=== PATIENT | female | born 1980 | race American Indian/Alaskan Native ===

== ENCOUNTER 2019-10-28 20:42 | Emergency (ER) | payer SELFPAY ==
[2019-10-28 22:24] LABS: Basophils % (Auto) 0.7 % (0.0-1.8); Eosinophils # (Auto) 0.1 K/mm3 (0.0-0.4); Eosinophils % (Auto) 2.3 % (0.0-4.3); Hematocrit 31.6 % (30.3-42.9); Hemoglobin 9.9 gm/dl (10.1-14.3); Lymphocytes # (Auto) 2.5 K/mm3 (1.2-5.4); Lymphocytes % (Auto) 40.9 % (13.4-35.0); Mean Corpuscular HGB Conc 31 % (30-34); Mean Corpuscular Volume 74 fl (79-97); Monocytes # (Auto) 0.4 K/mm3 (0.0-0.8); Monocytes % (Auto) 6.3 % (0.0-7.3); Platelet Count 377 K/mm3 (140-440); Red Blood Count 4.24 M/mm3 (3.65-5.03); Red Cell Distribution Width 17.5 % (13.2-15.2)
[2019-10-28 22:29] LABS: Alanine Aminotransferase 12 units/L (7-56); Albumin 3.8 g/dL (3.9-5); Blood Urea Nitrogen 7 mg/dL (7-17); Calcium 9.1 mg/dL (8.4-10.2); Hemolysis Index 2
[2019-10-28 22:32] LABS: BUN/Creatinine Ratio 10
[2019-10-28] MEDS ORDERED: ONDANSETRON 4 MG/2 ML INJ IV STA (23:47)
[2019-10-28] MEDS ORDERED: POTASSIUM CHLORIDE ER 20 MEQ TAB PO ONE (23:47)
[2019-10-28] MEDS ORDERED: HYOSCYAMINE SUBL 0.125 MG TAB SL ONE (23:47)
[2019-10-28] MEDS ORDERED: SODIUM CHLORIDE 0.9% 1000 ML 1,000 ML IV ONE (23:48)
--- NOTE | 2019-10-28 23:54 | Emergency Department Report ---
ED Abdominal Pain HPI - General Chief Complaint: Abdominal Pain Stated Complaint: CROHNS FLARE UP Time Seen by Provider: 10/28/19 23:42 Source: patient Mode of arrival: Ambulatory Limitations: No Limitations - History of Present Illness Initial Comments: 39-year-old F [place]an female with a past medical history of Crohn's disease on Remicade under the care of [facility] who has been out of her medications for the last 4 to 5 days presents emergency department complaining of a 3 to 4-day history of emergent abdominal pain and cramping sensations associated with nausea and sure she is having a Crohn's flareup. She reports having some scant blood in her stool about 3 days ago but none since that time. There is some nausea but no vomiting. Reports no fever, chills, sweats no chest pain or palpitations MD Complaint: abdominal pain - Related Data Previous Rx's Medication Instructions Recorded Last Taken Type Hyoscyamine Subl [Levsin Sl 0.125 0.125 mg SL Q6HR PRN #20 tab 10/29/19 Unknown Rx TAB] Ondansetron [Zofran ODT TAB] 8 mg PO Q12HR #14 tab.rapdis 10/29/19 Unknown Rx Allergies Allergy/AdvReac Type Severity Reaction Status Date / Time ibuprofen Allergy Anaphylaxis Verified 10/28/19 21:35 kiwi Allergy Anaphylaxis Verified 10/28/19 21:36 pineapple Allergy Anaphylaxis Verified 10/28/19 21:36 shellfish derived Allergy Anaphylaxis Verified 10/28/19 21:37 strawberry Allergy Anaphylaxis Verified 10/28/19 21:36 tomato Allergy Anaphylaxis Verified 10/28/19 21:37 ED Review of Systems ROS: Stated complaint: CROHNS FLARE UP Other details as noted in HPI Comment: All other systems reviewed and negative ED Past Medical Hx - Past Medical History Previous Medical History?: Yes Hx Hypertension: Yes Additional medical history: Crohns Disease, Diverticulitis - Surgical History Past Surgical History?: Yes Additional Surgical History: Bwel Resction, , Left Knee surgery - Social History Smoking Status: Current Every Day Smoker - Medications Home Medications: Home Medications Medication Instructions Recorded Confirmed Last Taken Type Hyoscyamine Subl [Levsin Sl 0.125 0.125 mg SL Q6HR PRN #20 tab 10/29/19 Unknown Rx TAB] Ondansetron [Zofran ODT TAB] 8 mg PO Q12HR #14 tab.rapdis 10/29/19 Unknown Rx ED Physical Exam - General Limitations: No Limitations General appearance: alert, in no apparent distress - Head Head exam: Present: atraumatic, normocephalic - Eye Eye exam: Present: normal appearance, PERRL, EOMI Pupils: Present: normal accommodation - ENT ENT exam: Present: normal exam, normal orophraynx, mucous membranes moist, TM's normal bilaterally - Neck Neck exam: Present: normal inspection - Respiratory Respiratory exam: Present: normal lung sounds bilaterally. Absent: respiratory distress, wheezes, rales, chest wall tenderness, accessory muscle use - Cardiovascular Cardiovascular Exam: Present: regular rate, normal rhythm. Absent: systolic murmur, diastolic murmur, rubs, gallop - GI/Abdominal GI/Abdominal exam: Present: soft, tenderness, normal bowel sounds. Absent: guarding, rebound, organomegaly, mass, bruit, hernia - Extremities Exam Extremities exam: Present: normal inspection - Back Exam Back exam: Present: normal inspection - Neurological Exam Neurological exam: Present: alert, oriented X3, CN II-XII intact - Psychiatric Psychiatric exam: Present: normal affect, normal mood - Skin Skin exam: Present: warm, dry, intact, normal color. Absent: rash ED Course Vital Signs 10/28/19 21:29 Temperature 98.0 F Pulse Rate 84 Respiratory 14 Rate Blood Pressure 180/125 O2 Sat by Pulse 97 Oximetry ED Medical Decision Making - Lab Data Result diagrams: 10/28/19 21:50 10/28/19 21:50 - Radiology Data Radiology results: report reviewed [address] [address] Cat Scan Report Signed Patient: AURELIA CASEY MR#: [id number] : 1980 Acct:[id number] Age/Sex: 39 / F ADM Date: 10/28/19 Loc: ED Attending Dr: Ordering Physician: AKUA JOHNSON Date of Service: 10/28/19 Procedure(s): CT abdomen pelvis w con Accession Number(s): [id number] cc: AKUA JOHNSON CT ABDOMEN AND PELVIS WITH IV CONTRAST INDICATION: Right lower quadrant abdominal pain, nausea and vomiting. History of Crohn's disease. TECHNIQUE: Following the administration of intravenous contrast, multiple axial CT images of the abdomen and pelvis were acquired. Sagittal and coronal reformats were obtained. All CT performed at this facility utilize dose reduction techniques including automated exposure control, iterative reconstruction and weight based dosing when appropriate to reduce patient radiation dose to as low as reasonably achievable. COMPARISON: No prior studies are available for comparison. FINDINGS: Limited imaging of the bilateral lung bases demonstrates no evidence of acute abnormality. Abdomen: The liver, gallbladder, spleen, pancreas, bilateral adrenal glands and bilateral kidneys show no evidence of acute abnormality. The abdominal aorta is normal in caliber. There is no evidence of bowel obstruction, pneumatosis or free fluid. Postsurgical changes are noted within the mid right abdomen. The appendix is visualized and appears normal. Pelvis: No free fluid is seen within the pelvis. There is been previous tubal banding procedure. The urinary bladder appears normal. Bones and Soft Tissues: Evaluation of bony structures demonstrates no evidence of acute bony abnormality. Evaluation of soft tissue structures demonstrates no evidence of acute soft tissue abnormality. Several fat-containing ventral hernias are noted. IMPRESSION: 1. No CT evidence of acute inflammatory or obstructive process within the abdomen or pelvis. Signer Name: Autumn Puentes MD Signed: 10/29/2019 1:40 AM Workstation Name: [id number] Transcribed By: EB Dictated By: Autumn Puentes MD Electronically Authenticated By: Autumn Puentes MD Signed Date/Time: 10/29/19139 DD/ 3 TD/TT: - Medical Decision Making This patient presents with abdominal pain of unclear etiology. A CT scan was performed to evaluate for potential causes of the abdominal pain, however, neither the clinical exam nor the CT has identified an emergent etiology for the abdominal pain. Specifically, given the benign exam, the laboratory studies, and unremarkable CT, I have a very low suspicion for appendicitis, ischemic bowel, bowel perforation, or any other life threatening disease. I have discussed with the patient the level of uncertainty with undifferentiated abdominal pain and clearly explained the need to follow-up as noted on the discharge instructions, or return to the Emergency Department immediately if the pain worsens, develops fever, persistent and uncontrollable vomiting, or for any new symptoms or concerns. Critical care attestation.: If time is entered above; I have spent that time in minutes in the direct care of this critically ill patient, excluding procedure time. ED Disposition Clinical Impression: Diarrhea, Abdominal pain Disposition: DC-01 TO HOME OR SELFCARE Is pt being admited?: No Does the pt Need Aspirin: No Condition: Stable Instructions: Abdominal Pain (ED), Loperamide (By mouth), Acute Diarrhea (ED), Acute Nausea and Vomiting (ED) Referrals: PRIMARY CARE, [Primary Care Provider] - 3-5 Days [facility] [Provider Group] - 3-5 Days
--- NOTE | 2019-10-29 01:44 | Cat Scan Report ---
CT ABDOMEN AND PELVIS WITH IV CONTRAST INDICATION: Right lower quadrant abdominal pain, nausea and vomiting. History of Crohn's disease. TECHNIQUE: Following the administration of intravenous contrast, multiple axial CT images of the abdo men and pelvis were acquired. Sagittal and coronal reformats were obtained. All CT performed at this facility utilize dose reduction techniques including automated exposure control, iterative reconstru ction and weight based dosing when appropriate to reduce patient radiation dose to as low as reasonab ly achievable. COMPARISON: No prior studies are available for comparison. FINDINGS: Limited imaging of the bilateral lung bases demonstrates no evidence of acute abnormality. Abdomen: The liver, gallbladder, spleen, pancreas, bilateral adrenal glands and bilateral kidneys nabil w no evidence of acute abnormality. The abdominal aorta is normal in caliber. There is no evidence of bowel obstruction, pneumatosis or free fluid. Postsurgical changes are noted within the mid right ab domen. The appendix is visualized and appears normal. Pelvis: No free fluid is seen within the pelvis. There is been previous tubal banding procedure. The urinary bladder appears normal. Bones and Soft Tissues: Evaluation of bony structures demonstrates no evidence of acute bony abnormal ity. Evaluation of soft tissue structures demonstrates no evidence of acute soft tissue abnormality. Several fat-containing ventral hernias are noted. IMPRESSION: 1. No CT evidence of acute inflammatory or obstructive process within the abdomen or pelvis. Signer Name: Autumn Puentes MD Signed: 10/29/2019 1:40 AM Workstation Name: [employer] [place] [id number]
[2019-10-29 02:48] VITALS: BP 184/121
== END 2019-10-29 02:44 | disposition home or self-care (01) ==
LOC: ED 20:42
DX: R19.7 Diarrhea, unspecified (principal); R10.9 Unspecified abdominal pain; I10 Essential (primary) hypertension; F17.200 Nicotine dependence, unspecified, uncomplicated; Z79.899 Other long term (current) drug therapy; Z88.6 Allergy status to analgesic agent; Z91.018 Allergy to other foods; Z98.890 Other specified postprocedural states
CPT/HCPCS: 36415; 74177; 80053; 83690; 84703; 85025; 96361; 96374; 99284; J2405; J7030; Q9967

== ENCOUNTER 2021-04-04 14:30 | Emergency (ER) | payer SELFPAY ==
[2021-04-04] MEDS ORDERED: HYDROcodone/ACETAMINOPHEN 5-325 MG TAB PO ONE (15:29)
[2021-04-04] MEDS ORDERED: cloNIDine 0.1 MG TAB PO ONE (15:29)
[2021-04-04 15:54] LABS: Basophils # (Auto) 0.1 K/mm3 (0.0-0.1); Basophils % (Auto) 1.2 % (0.0-1.8); Eosinophils # (Auto) 0.1 K/mm3 (0.0-0.4); Eosinophils % (Auto) 2.9 % (0.0-4.3); Lymphocytes # (Auto) 1.2 K/mm3 (1.2-5.4); Lymphocytes % (Auto) 28.2 % (13.4-35.0); Mean Corpuscular HGB Conc 30 % (30-34); Monocytes # (Auto) 0.5 K/mm3 (0.0-0.8); Monocytes % (Auto) 12.3 % (0.0-7.3); Platelet Count 355 K/mm3 (140-440); Red Blood Count 3.98 M/mm3 (3.65-5.03); Red Cell Distribution Width 17.6 % (13.2-15.2)
[2021-04-04 15:57] LABS: Hemoglobin 7.8 gm/dl (10.1-14.3)
[2021-04-04 15:58] LABS: Hematocrit 26.5 % (30.3-42.9); Mean Corpuscular Volume 67 fl (79-97)
[2021-04-04 16:20] LABS: Alanine Aminotransferase 10 units/L (7-56); Albumin 3.4 g/dL (3.9-5); BUN/Creatinine Ratio 19; Blood Urea Nitrogen 15 mg/dL (7-17); Calcium 8.3 mg/dL (8.4-10.2); Hemolysis Index 4
[2021-04-04] MEDS ORDERED: POTASSIUM CHLORIDE ER 20 MEQ TAB PO ONE (16:27)
--- NOTE | 2021-04-04 16:40 | XRay Report ---
CHEST 2 VIEWS INDICATION / CLINICAL INFORMATION: Chest Pain STUDY TIME: 1623 COMPARISON: None available. FINDINGS: SUPPORT DEVICES: None. HEART / MEDIASTINUM: No significant abnormality. LUNGS / PLEURA: No significant acute pulmonary or pleural abnormality. No pneumothorax. ADDITIONAL FINDINGS: No significant additional findings. Signer Name: Chaz Castro MD Signed: 04/04/2021 4:36 PM Workstation Name: [id number]
--- NOTE | 2021-04-04 16:46 | Emergency Department Report ---
ED General Adult HPI - General Chief complaint: Headache Stated complaint: CHEST PAIN Time Seen by Provider: 04/04/21 15:28 Source: patient Mode of arrival: Ambulatory Limitations: No Limitations - History of Present Illness Initial comments: Patient is a 41-year-old female who presents emergency room with complaints of a frontal headache that began this morning when she woke up. She states that she is also having a pulling sensation across her chest. She denies any fever, nausea, vomiting, diarrhea, shortness of breath, numbness, unilateral weakness, speech disturbance, vision changes, pleuritic pain. Past medical history of hypertension and Crohn's disease. She states that she did not take her blood pressure medication today. She states that she is also out of her hydrochlorothiazide 12.5 mg daily. Patient states that she has an allergy to i buprofen which she reports causes anaphylaxis and she has to use an EpiPen. Severity scale (0 -10): 10 - Related Data Previous Rx's Medication Instructions Recorded Last Taken Type Hyoscyamine Subl [Levsin Sl 0.125 0.125 mg SL Q6HR PRN #20 tab 10/29/19 Unknown Rx TAB] Ondansetron [Zofran ODT TAB] 8 mg PO Q12HR #14 tab.rapdis 10/29/19 Unknown Rx Butalb/Acetaminophen/Caffeine 1 cap PO Q8HR PRN #12 cap 04/04/21 Unknown Rx [Fioricet 50-300-40 mg CAP] hydroCHLOROthiazide 12.5 mg PO DAILY #30 tab 04/04/21 Unknown Rx [Hydrochlorothiazide] Allergies Allergy/AdvReac Type Severity Reaction Status Date / Time ibuprofen Allergy Anaphylaxis Verified 10/28/19 21:35 kiwi Allergy Anaphylaxis Verified 10/28/19 21:36 pineapple Allergy Anaphylaxis Verified 10/28/19 21:36 shellfish derived Allergy Anaphylaxis Verified 10/28/19 21:37 strawberry Allergy Anaphylaxis Verified 10/28/19 21:36 tomato Allergy Anaphylaxis Verified 10/28/19 21:37 ED Review of Systems ROS: Stated complaint: CHEST PAIN Other details as noted in HPI Comment: All other systems reviewed and negative ED Past Medical Hx - Past Medical History Previous Medical History?: Yes Hx Hypertension: Yes Additional medical history: Crohns Disease, Diverticulitis - Surgical History Past Surgical History?: Yes Additional Surgical History: Bowel Resction, , Left Knee surgery - Social History Smoking Status: Current Every Day Smoker - Medications Home Medications: Home Medications Medication Instructions Recorded Confirmed Last Taken Type Hyoscyamine Subl [Levsin Sl 0.125 0.125 mg SL Q6HR PRN #20 tab 10/29/19 Unknown Rx TAB] Ondansetron [Zofran ODT TAB] 8 mg PO Q12HR #14 tab.rapdis 10/29/19 Unknown Rx Butalb/Acetaminophen/Caffeine 1 cap PO Q8HR PRN #12 cap 04/04/21 Unknown Rx [Fioricet 50-300-40 mg CAP] hydroCHLOROthiazide 12.5 mg PO DAILY #30 tab 04/04/21 Unknown Rx [Hydrochlorothiazide] ED Physical Exam - General Limitations: No Limitations General appearance: alert, in no apparent distress - Head Head exam: Present: atraumatic, normocephalic - Eye Eye exam: Present: normal appearance, PERRL, EOMI - ENT ENT exam: Present: mucous membranes moist - Respiratory Respiratory exam: Present: normal lung sounds bilaterally. Absent: respiratory distress, wheezes, rales, rhonchi, stridor, chest wall tenderness, accessory muscle use, decreased breath sounds, prolonged expiratory - Cardiovascular Cardiovascular Exam: Present: regular rate, normal rhythm, normal heart sounds. Absent: systolic murmur, diastolic murmur, rubs, gallop - Neurological Exam Neurological exam: Present: alert, oriented X3, CN II-XII intact, normal gait, other (I watched pt walk from exam room to reassesment area with her bag with no difficulty). Absent: motor sensory deficit - Psychiatric Psychiatric exam: Present: normal affect, normal mood - Skin Skin exam: Present: warm, dry, intact ED Course Vital Signs 04/04/21 04/04/21 15:10 17:48 Temperature 98.4 F Pulse Rate 80 68 Respiratory 20 Rate Blood Pressure 138/90 Blood Pressure 183/117 [Right] O2 Sat by Pulse 100 100 Oximetry ED Medical Decision Making - Lab Data Result diagrams: 04/04/21 15:40 04/04/21 15:40 Lab Results 04/04/21 04/04/21 04/04/21 Range/Units 15:40 15:40 15:40 WBC 4.3 L (4.5-11.0) K/mm3 RBC 3.98 (3.65-5.03) M/mm3 Hgb 7.8 L (10.1-14.3) gm/dl Hct 26.5 L (30.3-42.9) % MCV 67 L (79-97) fl MCH 20 L (28-32) pg MCHC 30 (30-34) % RDW 17.6 H (13.2-15.2) % Plt Count 355 (140-440) K/mm3 Lymph % (Auto) 28.2 (13.4-35.0) % Burnett % (Auto) 12.3 H (0.0-7.3) % Eos % (Auto) 2.9 (0.0-4.3) % Baso % (Auto) 1.2 (0.0-1.8) % Lymph # (Auto) 1.2 (1.2-5.4) K/mm3 Burnett # (Auto) 0.5 (0.0-0.8) K/mm3 Eos # (Auto) 0.1 (0.0-0.4) K/mm3 Baso # (Auto) 0.1 (0.0-0.1) K/mm3 Seg Neutrophils % 55.4 (40.0-70.0) % Seg Neutrophils # 2.4 (1.8-7.7) K/mm3 Sodium 141 (137-145) mmol/L Potassium 3.2 L (3.6-5.0) mmol/L Chloride 106.0 (98-107) mmol/L Carbon Dioxide 25 (22-30) mmol/L Anion Gap 13 mmol/L BUN 15 (7-17) mg/dL Creatinine 0.8 (0.6-1.2) mg/dL Estimated GFR > 60 ml/min BUN/Creatinine Ratio 19 % Glucose 85 (65-100) mg/dL Calcium 8.3 L (8.4-10.2) mg/dL Total Bilirubin 0.30 (0.1-1.2) mg/dL AST 15 (5-40) units/L ALT 10 (7-56) units/L Alkaline Phosphatase 79 (35-129) units/L Troponin T < 0.010 (0.00-0.029) ng/mL Total Protein 6.5 (6.3-8.2) g/dL Albumin 3.4 L (3.9-5) g/dL Albumin/Globulin Ratio 1.1 % HCG, Qual Negative (Negative) 04/04/21 Range/Units 18:27 WBC (4.5-11.0) K/mm3 RBC (3.65-5.03) M/mm3 Hgb (10.1-14.3) gm/dl Hct (30.3-42.9) % MCV (79-97) fl MCH (28-32) pg MCHC (30-34) % RDW (13.2-15.2) % Plt Count (140-440) K/mm3 Lymph % (Auto) (13.4-35.0) % Burnett % (Auto) (0.0-7.3) % Eos % (Auto) (0.0-4.3) % Baso % (Auto) (0.0-1.8) % Lymph # (Auto) (1.2-5.4) K/mm3 Burnett # (Auto) (0.0-0.8) K/mm3 Eos # (Auto) (0.0-0.4) K/mm3 Baso # (Auto) (0.0-0.1) K/mm3 Seg Neutrophils % (40.0-70.0) % Seg Neutrophils # (1.8-7.7) K/mm3 Sodium (137-145) mmol/L Potassium (3.6-5.0) mmol/L Chloride (98-107) mmol/L Carbon Dioxide (22-30) mmol/L Anion Gap mmol/L BUN (7-17) mg/dL Creatinine (0.6-1.2) mg/dL Estimated GFR ml/min BUN/Creatinine Ratio % Glucose (65-100) mg/dL Calcium (8.4-10.2) mg/dL Total Bilirubin (0.1-1.2) mg/dL AST (5-40) units/L ALT (7-56) units/L Alkaline Phosphatase (35-129) units/L Troponin T < 0.010 (0.00-0.029) ng/mL Total Protein (6.3-8.2) g/dL Albumin (3.9-5) g/dL Albumin/Globulin Ratio % HCG, Qual (Negative) Vital Signs (72 hours) 04/04/21 04/04/21 15:10 17:48 Temperature 98.4 F Pulse Rate 80 68 Respiratory 20 Rate Blood Pressure 138/90 Blood Pressure 183/117 [Right] O2 Sat by Pulse 100 100 Oximetry - EKG Data EKG shows normal: sinus rhythm, axis, intervals, QRS complexes, ST-T waves Rate: normal - Radiology Data Radiology results: report reviewed Ordering Physician: AKUA PETTIT Date of Service: 04/04/21 Procedure(s): CT head/brain wo con Accession Number(s): [id number] cc: AKUA PETTIT CT head/brain wo con INDICATION / CLINICAL INFORMATION: 41 years Female; AGUILAR, hypertensive. TECHNIQUE: Routine CT head without contrast. All CT scans at this location are performed using CT dose reduction for ALARA by means of automated exposure control. COMPARISON: None. FINDINGS: BRAIN / INTRACRANIAL CONTENTS: No acute hemorrhage, mass effect, midline shift, hydrocephalus, or acute, large territorial infarct. No signs of significant atrophy or chronic infarct. No significant white matter abnormality seen. CRANIOCERVICAL JUNCTION: No significant abnormality. ORBITS: No significant abnormality of visualized orbits. SINUSES / MASTOIDS: Visualized paranasal sinuses and mastoid air cells are essentially clear. ADDITIONAL FINDINGS: None. IMPRESSION: 1. No focal mass, hemorrhage, hydrocephalus, or acute, large territorial infarct. Signer Name: Raymundo Kimball MD, III Signed: 04/04/2021 4:50 PM Workstation Name: [email or web address] [id number] Transcribed By: HR Dictated By: Raymundo Kimball MD Electronically Authenticated By: Raymundo Kimball MD Signed Date/Time: 04/04/21 165 DD/ 1649 TD/TT: Ordering Physician: AKUA PETTIT Date of Service: 04/04/21 Procedure(s): XR chest routine 2V Accession Number(s): [id number] cc: AKUA PETTIT Fluoro Time In Minutes: CHEST 2 VIEWS INDICATION / CLINICAL INFORMATION: Chest Pain STUDY TIME: 1623 COMPARISON: None available. FINDINGS: SUPPORT DEVICES: None. HEART / MEDIASTINUM: No significant abnormality. LUNGS / PLEURA: No significant acute pulmonary or pleural abnormality. No pneumothorax. ADDITIONAL FINDINGS: No significant additional findings. Signer Name: Chaz Castro MD Signed: 04/04/2021 4:36 PM Workstation Name: [id number] Transcribed By: NAZ Dictated By: Chaz Castro MD Electronically Authenticated By: Chaz Castro MD Signed Date/Time: 04/04/211635 DD/ 34 TD/TT: - Medical Decision Making Patient is a 41-year-old female who presents emergency room with complaints of a frontal headache that began this morning when she woke up. She states that she is also having a pulling sensation across her chest. She denies any fever, nausea, vomiting, diarrhea, shortness of breath, numbness, unilateral weakness, speech disturbance, vision changes, pleuritic pain. Past medical history of hypertension and Crohn's disease. She states that she did not take her blood pressure medication today. She states that she is also out of her hydrochlorothiazide 12.5 mg daily. Patient states that she has an allergy to ibuprofen which she reports causes anaphylaxis and she has to use an EpiPen. Initial vitals with significantly elevated blood pressure which improved upon clonidine administration. Given the patient is hypertensive with acute frontal headache, CT head ordered and shows 1. No focal mass, hemorrhage, hyd rocephalus, or acute, large territorial infarct. She has no focal neuro deficits on exam, no fever, no leukocytosis, no meningeal signs, no trauma, no anticoagulant use. Chest x-ray ADDITIONAL FINDINGS: No significant additional findings. EKG is a normal limits. Heart score is 2, low risk for cardiac event. H&H was stable anemia, she is not having any bleeding, upon chart review she has had some mild anemia in the past but has slightly worsened, will have patient follow-up with her primary care doctor. Mild hypokalemia 3.2, given K- Dur. Troponin is negative x2. PERC criteria negative for PE, PE unlikely. Patient given medications in the emergency department with resolution of her s ymptoms. Patient has no radiation of her chest pain to her back, no ripping sensation, blood pressure significantly improved, no enlargement of the mediastinum on x-ray, do not suspect aortic dissection. Discussed all findings with patient and the importance of primary care and outpatient cardiology follow-up. Advised patient Please take medication as prescribed. Please take your blood pressure medication as prescribed by your primary care doctor. Follow-up with your primary care doctor. Keep a blood pressure log. Eat a low- sodium diet. Incorporate 30 to 60 minutes of daily exercise. Follow-up with a [facility]. Return to emergency room for any new or worsening symptoms. Critical care attestation.: If time is entered above; I have spent that time in minutes in the direct care of this critically ill patient, excluding procedure time. ED Disposition Clinical Impression: Elevated blood pressure reading, Hypokalemia Chest pain Qualifiers: Chest pain type: unspecified Qualified Code(s): R07.9 - Chest pain, unspecified Headache Qualifiers: Headache type: unspecified Headache chronicity pattern: acute headache Intractability: not intractable Qualified Code(s): R51.9 - Headache, unspecified Anemia Qualifiers: Anemia type: unspecified type Qualified Code(s): D64.9 - Anemia, unspecified Disposition: 01 HOME / SELF CARE / HOMELESS Is pt being admited?: No Does the pt Need Aspirin: No Condition: Stable Instructions: General Headache Without Cause, Nonspecific Chest Pain, Adult, Hypertension, Adult Additional Instructions: Please take medication as prescribed. Please take your blood pressure medication as prescribed by your primary care doctor. Follow-up with your [facility] doctor. Keep a blood pressure log. Eat a low-sodium diet. Incorporate 30 to 60 minutes of daily exercise. Follow-up with a [facility]. Return to emergency room for any new or worsening symptoms. Prescriptions: Butalb/Acetaminophen/Caffeine [Fioricet 50-300-40 mg CAP] 1 cap PO Q8HR PRN #12 cap PRN Reason: headache hydroCHLOROthiazide [Hydrochlorothiazide] 12.5 mg PO DAILY #30 tab Referrals: PRIMARY CAREMD [Primary Care Provider] - 3-5 Days SPENCER DUNAWAY MD [Staff Physician] - 3-5 Days Time of Disposition: 19:39 HEART Score - HEART Score History: Moderately suspicious EKG: Normal Age: < 45 Risk factors: 1-2 risk factors Troponin: Troponin T < 0.010 ng/mL (0.00-0.029) 04/04/21 18:27 Troponin: < normal limit HEART Score: 2
--- NOTE | 2021-04-04 16:55 | Cat Scan Report ---
CT head/brain wo con INDICATION / CLINICAL INFORMATION: 41 years Female; AGUILAR, hypertensive. TECHNIQUE: Routine CT head without contrast. All CT scans at this location are performed using CT dos e reduction for ALARA by means of automated exposure control. COMPARISON: None. FINDINGS: BRAIN / INTRACRANIAL CONTENTS: No acute hemorrhage, mass effect, midline shift, hydrocephalus, or acu te, large territorial infarct. No signs of significant atrophy or chronic infarct. No significant whi te matter abnormality seen. CRANIOCERVICAL JUNCTION: No significant abnormality. ORBITS: No significant abnormality of visualized orbits. SINUSES / MASTOIDS: Visualized paranasal sinuses and mastoid air cells are essentially clear. ADDITIONAL FINDINGS: None. IMPRESSION: 1. No focal mass, hemorrhage, hydrocephalus, or acute, large territorial infarct. Signer Name: Raymundo Kimball MD, III Signed: 04/04/2021 4:50 PM Workstation Name: [email or web address]
[2021-04-04 17:52] VITALS: BP 138/90
[2021-04-04] MEDS ORDERED: BUTALB/ACETAMINOPHEN/CAFFEINE TAB PO ONE (18:07)
[2021-04-04] MEDS ORDERED: diphenhydrAMINE 25 MG/10 ML ORAL LIQUID PO ONE (18:07)
[2021-04-04] MEDS ORDERED: METOCLOPRAMIDE 10 MG TAB PO ONE (18:07)
--- NOTE | 2021-04-05 11:39 | Electrocardiograph Report ---
[facility] Test Date: 2021-04-04 Test Time: 15:16:20 Pat Name: AURELIA CASEY Department: Room: Gender: F Retail Attendant: MANI TOLBERT : 1980 Requested By: CORINA SHELLEY Order Number: [id number] Reading MD: Bj Stevens Measurements Intervals Tiona Rate: 76 P: 34 AL: 154 QRS: 46 QRSD: 77 T: 13 QT: 411 QTc: 463 Interpretive Statements Sinus rhythm No previous ECG available for comparison Electronically Signed On 04-05-2021 11:39:35 EST by Bj Stevens
== END 2021-04-04 20:10 | disposition home or self-care (01) ==
LOC: ED 14:30
DX: R03.0 Elevated blood-pressure reading, without diagnosis of hypertension (principal); E87.6 Hypokalemia; R07.89 Other chest pain; R51.9 Headache, unspecified; D64.9 Anemia, unspecified; I10 Essential (primary) hypertension; F17.200 Nicotine dependence, unspecified, uncomplicated; Z98.890 Other specified postprocedural states; Z88.6 Allergy status to analgesic agent; Z91.018 Allergy to other foods; Z79.899 Other long term (current) drug therapy
CPT/HCPCS: 36415; 70450; 71046; 80053; 84484; 84703; 85025; 93005; 93010; 99284; Q0163

== ENCOUNTER 2021-04-27 13:55 | Emergency (ER) | payer SELFPAY ==
[2021-04-27 14:00] VITALS: BP 170/100
--- NOTE | 2021-04-27 14:51 | Emergency Department Report ---
HPI - General Chief Complaint: Psych Time Seen by Provider: 04/27/21 14:35 - HPI HPI: Room 15 The patient is a 41-year-old female present with a chief complaint of depression. The patient has a history of depression states she has not taken her Seroquel or Wellbutrin XL for at least 1 year. The patient states lately she has been "dealing" with her depression and states has been "getting worse." The patient has not gone to work in several days and states she just stays in her room. The patient admits to suicidal ideation a few days ago but denies any plans or active attempts at harming herself. ED Past Medical Hx - Past Medical History Hx Hypertension: Yes Hx Psychiatric Treatment: Yes (DEPRESSION) Additional medical history: Crohns Disease, Diverticulitis - Surgical History Additional Surgical History: Bowel Resction, , Left Knee surgery - Family History Family history: no significant - Social History Smoking Status: Former Smoker (None x1 year) Substance Use Type: None (Denies illicit drug use), Alcohol (Occasional) - Medications Home Medications: Home Medications Medication Instructions Recorded Confirmed Last Taken Type amLODIPine [Norvasc] 2.5 mg PO DAILY 04/27/21 04/27/21 Unknown History buPROPion XL [Wellbutrin Xl] 150 mg PO QAM #30 04/27/21 Unknown Rx hydroCHLOROthiazide 25 mg PO DAILY 04/27/21 04/27/21 Unknown History [Hydrochlorothiazide] ED Review of Systems ROS: Stated complaint: PSYCH EVAL/RX REFILL Other details as noted in HPI Constitutional: no symptoms reported Eyes: denies: eye pain ENT: denies: throat pain Respiratory: no symptoms reported Cardiovascular: denies: chest pain Endocrine: no symptoms reported Gastrointestinal: denies: abdominal pain Genitourinary: denies: dysuria Musculoskeletal: denies: back pain Neurological: denies: headache Psychiatric: suicidal thoughts Physical Exam - Physical Exam Vital Signs: Vital Signs 04/27/21 04/27/21 13:56 14:23 Temperature 98 F Pulse Rate 85 Respiratory 20 Rate Blood Pressure 170/100 [Right] O2 Sat by Pulse 99 99 Oximetry Physical Exam: GENERAL: The patient is well-developed well-nourished female lying on chair not appearing to be in acute distress. [] HEENT: Normocephalic. Atraumatic. Extraocular motions are intact. Patient has moist mucous membranes. NECK: Supple. Trachea midline CHEST/LUNGS: Clear to auscultation. There is no respiratory distress noted. HEART/CARDIOVASCULAR: Regular. There is no tachycardia. There is no gallop rub or murmur. ABDOMEN: Abdomen is soft, nontender. Patient has normal bowel sounds. There is no abdominal distention. SKIN: There is no rash. There is no edema. There is no diaphoresis. NEURO: The patient is awake, alert, and oriented. The patient is cooperative. The patient has no focal neurologic deficits. The patient has normal speech. GCS 15 MUSCULOSKELETAL: There is no evidence of acute injury. 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 ED Medical Decision Making - Lab Data Result diagrams: 04/27/21 15:02 04/27/21 15:02 - Differential Diagnosis Depression, suicidal ideation Critical care attestation.: If time is entered above; I have spent that time in minutes in the direct care of this critically ill patient, excluding procedure time. ED Disposition Clinical Impression: Depression Disposition: 65 [facility] Is pt being admited?: No Does the pt Need Aspirin: No Condition: Stable Additional Instructions: Professional and Agency Contacts To help Resolve Crises(26/09) [place] Crisis Line: Suicide Prevention Line: Crisis Text Line: Text START to 182156 Emergency: 911 Outpatient COMMUNITY Behavioral Health Resources: DEEDGARDLB: [facility] [address] [place], [place] [address] [place]: [facility] - [facility] [address] [place] [address] ALMAZ: [facility] - [address] [place] [address] Monday thru Monday - 8am - 5pm JOSE ARMANDO: [facility] Address: [address], [place] [address] MILIND: [facility] Address: [address], [place] [address] Monday thru Monday- 7am-2pm [facility] Address: [address], [place] [address] Monday thru Monday: 8:30AM-5PM OUTPATIENT MENTAL HEALTH RESOURCES [facility], [address] [place] [address] [facility] Ton Hinton MD: [address] [facility] [address] [place], [place] [id number] [facility]: [address] [place] [address] [address] [place] [address] [phone] [facility]: [address] [facility] [address] [facility] [address] [place] [address] [phone] [facility]: [address] [facility] [address] [facility] [id number] [facility]: [address] [place] [address] Francesco Bonilla MD: [address] [facility] [id number] [facility]: [address] [place], [place] [id number] [phone] [place] CRISIS AND ACCESS LINE: * Prescriptions: buPROPion XL [Wellbutrin Xl] 150 mg PO QAM #30 Referrals: PRIMARY CARE, [Primary Care Provider] - 3-5 Days Time of Disposition: 17:06
[2021-04-27 15:15] LABS: Basophils % (Auto) 0.8 % (0.0-1.8); Eosinophils # (Auto) 0.1 K/mm3 (0.0-0.4); Eosinophils % (Auto) 1.8 % (0.0-4.3); Hemoglobin 9.3 gm/dl (10.1-14.3); Lymphocytes # (Auto) 1.6 K/mm3 (1.2-5.4); Lymphocytes % (Auto) 26.5 % (13.4-35.0); Mean Corpuscular HGB Conc 30 % (30-34); Monocytes # (Auto) 0.4 K/mm3 (0.0-0.8); Monocytes % (Auto) 7.1 % (0.0-7.3); Platelet Count 469 K/mm3 (140-440); Red Blood Count 4.64 M/mm3 (3.65-5.03); Red Cell Distribution Width 17.9 % (13.2-15.2)
[2021-04-27 15:16] LABS: Hematocrit 31.3 % (30.3-42.9); Mean Corpuscular Volume 68 fl (79-97)
[2021-04-27 15:25] LABS: Bilirubin,Urine NEG (Negative); Blood,Urine SM (Negative); Color,Urine Yellow (Yellow); Mucus,Urine 1+ /HPF; Urobilinogen,Urine < 2.0 mg/dL (<2.0)
[2021-04-27 15:27] LABS: Amphetamine Screen,Urine Negative; Benzodiazepines Screen,Urine Negative; Cannabinoid Screen,Urine Negative; Cocaine Screen,Urine Negative; Methadone Screen,Urine Negative; Opiate Screen,Urine Negative
[2021-04-27 15:54] LABS: Alanine Aminotransferase 12 units/L (7-56); Albumin 3.9 g/dL (3.9-5); BUN/Creatinine Ratio 16; Blood Urea Nitrogen 13 mg/dL (7-17); Calcium 9.4 mg/dL (8.4-10.2); Hemolysis Index 2
== END 2021-04-27 17:23 ==
LOC: ED 13:55
DX: F32.9 Major depressive disorder, single episode, unspecified (principal); I10 Essential (primary) hypertension; Z87.891 Personal history of nicotine dependence; Z72.89 Other problems related to lifestyle; Z79.899 Other long term (current) drug therapy; Z88.6 Allergy status to analgesic agent; Z88.0 Allergy status to penicillin; Z91.018 Allergy to other foods; Z91.013 Allergy to seafood
CPT/HCPCS: 36415; 80053; 80307; 80320; 81001; 84703; 85025; 87086; 99284; G0480